=== PATIENT | male | born 1950 | race Caucasian/White ===

== ENCOUNTER 2017-01-29 08:23 | Emergency (ER) | payer MEDICARE, OTHER ==
[~2017-01-29] VITALS: Ht 185.4 cm; Wt 115.0 kg
[2017-01-29 08:27] VITALS: BP 113/62; PULSE 60; RESP 18; TEMP 98; O2SAT 99
[2017-01-29] MEDS ORDERED: ATEN25TA PO (08:34)
[2017-01-29] MEDS ORDERED: VALS1TAB70 PO (08:34)
[2017-01-29] MEDS ORDERED: AMLO10TA2 PO (08:34)
--- NOTE | 2017-01-29 08:50 | PD ---
HPI Chief Complaint: Hip Injury Time Seen by Provider: 08:42 Travel History International Travel<30 days: No Contact w/Intl Traveler<30days: No Traveled to known affect area: No History of Present Illness HPI 66yo M with PMH of HTN presents to the ED with c/o right hip pain s/p fall at 7: 30am today. States he went to sit down on a chair and only got half the chair and then fell and hit his right hip. Pain is localized in right hip. Denies any head trauma, LOC, chest pain, sob, dizziness, n/v, abdominal pain, focal weakness or numbness. Pt has not tried to walk after the fall. Last drink/ food was 6am. Pt does not want anything for pain right now. PFSH Past Medical History Hypertension: Yes Past Surgical History Other Surgery: Yes (sinus surgery) Social History Alcohol Use: Yes Tobacco Use: Yes Substance Use: No Allergies-Medications (Allergen,Severity, Reaction): Coded Allergies: No Known Allergies (Unverified , 01/29/17) Reported Meds & Prescriptions Reported Meds & Active Scripts Active Reported Valsartan 320 Mg Tab 320 Mg PO DAILY Amlodipine (Amlodipine Besylate) 10 Mg Tab 10 Mg PO DAILY Atenolol 25 Mg Tab 25 Mg PO DAILY Review of Systems Except as stated in HPI: all other systems reviewed are Neg Physical Exam Narrative GENERAL: 66yo M not in distress. SKIN: Focused skin assessment warm/dry. HEAD: Atraumatic. Normocephalic. EYES: Pupils equal and round. No scleral icterus. No injection or drainage. ENT: No nasal bleeding or discharge. Mucous membranes pink and moist. NECK: Trachea midline. No JVD. CARDIOVASCULAR: Regular rate and rhythm. No murmur appreciated. RESPIRATORY: No accessory muscle use. Clear to auscultation. Breath sounds equal bilaterally. GASTROINTESTINAL: Abdomen soft, non-tender, nondistended. No rebound tenderness or guarding. MUSCULOSKELETAL: RLE: +TTP proximal femur. Sensation intact. DP 2+. NEUROLOGICAL: Awake and alert. No obvious cranial nerve deficits. Motor grossly within normal limits. Normal speech. PSYCHIATRIC: Appropriate mood and affect; insight and judgment normal. Data Data Last Documented VS Vital Signs Date Time Temp Pulse Resp B/P Pulse Ox O2 Delivery O2 Flow Rate FiO2 01/29/17 10:49 84 18 138/67 98 01/29/17 08:45 Room Air 01/29/17 08:27 98.0 Orders Hip, Uni(Ap&Lat) W Ap Pelvis (01/29/17 ) MDM Medical Decision Making Medical Screen Exam Complete: Yes Emergency Medical Condition: Yes Interpretation(s) Last Impressions Hip and Pelvis X-Ray 01/29/17 0000 Signed Impressions: Service Date/Time: Sunday, January 29, 2017 09:12 - CONCLUSION: No acute fracture or joint dislocation. Carlos Carolina MD Differential Diagnosis Contusion vs. fracture Narrative Course 66yo M with right hip pain s/p mechanical fall. No other injuries. Xray right hip showed no acute fracture or joint dislocation. Pt did not want any pain medication. Pt able to ambulate in the ED. Return precautions given. Diagnosis Primary Impression: Contusion of right hip Qualified Code: S70.01XA - Contusion of right hip, initial encounter Patient Instructions: General Instructions Departure Forms: Tests/Procedures Additional Instructions: Please follow up with your PMD in 3-7 days. Return to the ED if symptoms worsen. Med/Other Pt SpecificInfo: Prescription(s) given Scripts Acetaminophen (Tylenol)325 Mg [id number] Mg PO Q6H PRN (PAIN SCALE 1 TO 4) #20 TAB Ref 0 Prov:Gaye Burton DO 01/29/17 Disposition: 01 DISCHARGE HOME Condition: Stable MichealAgye DO Jan 29, 2017 08:50
--- NOTE | 2017-01-29 09:36 | RADRPT ---
EXAM DATE/TIME: 01/29/2017 09:12 [facility] COMPARISON: No previous studies available for comparison. INDICATIONS : Right hip pain from fall today. MEDICAL HISTORY : None. SURGICAL HISTORY : None. ENCOUNTER: Initial ACUITY: 1 day PAIN SCORE: 7/10 LOCATION: Right posterior hip FINDINGS: Examination of the right hip was performed with AP Pelvis. The primary and secondary trabecular deon aníbal of the femoral neck is intact. The hip joint is of normal width without significant sclerosis or bony hypertrophy. The acetabulum is grossly intact. There are degenerative changes of the lower lum bar spine. CONCLUSION: No acute fracture or joint dislocation. Carlos Carolina MD on January 29, 2017 at 9:34 Board Certified Radiologist. This report was verified electronically.
[2017-01-29 10:49] VITALS: BP 138/67
[2017-01-29] MEDS ORDERED: TYLE325T PO (11:05)
== END 2017-01-29 11:10 | disposition home or self-care (01) ==
LOC: NEPE 08:23
DX: S70.01XA Contusion of right hip, initial encounter (principal); I10 Essential (primary) hypertension; W07.XXXA Fall from chair, initial encounter; Z72.0 Tobacco use
CPT/HCPCS: 73502; 99283